=== PATIENT | male | born 1940 | race Caucasian/White ===

== ENCOUNTER 2016-06-24 16:46 | Outpatient (CLI) | payer MEDICARE ==
[2016-06-24 19:41] LABS: Bilirubin Negative (Negative); Blood, Urine Negative (Negative); Clarity Clear (Clear); Glucose, Urine (Dipstick) Negative (Negative); Leukocyte Negative (Negative); Nitrite Negative (Negative); Protein, Urine (Dipstick) Negative (Neg-Trace); Specific Gravity, Urine 1.015 (1.005-1.030); Urobilinogen 0.2 mg/dL (0.2-1.0); pH, Urine 5.5 (5.0-9.0)
[2016-06-24 19:57] LABS: Hemoglobin A1c 7.9 % (4.0-6.0)
[2016-06-24 21:55] LABS: Crystals/HPF RARE CA OXALATE HPF (Negative); Squamous Epithelial 0-3 HPF (0-3); Yeast-All Forms Rare HPF (None Seen)
== END 2016-06-24 16:47 | disposition home or self-care (01) ==
LOC: NAV LABSP 16:46
PROVIDERS: ATTEND Family Medicine
DX: E11.42 Type 2 diabetes mellitus with diabetic polyneuropathy (principal); R30.0 Dysuria
CPT/HCPCS: 81001; 83036; 87086